=== PATIENT | female | born 1950 | race Caucasian/White ===

== ENCOUNTER → 2018-08-08 | Outpatient (CLI) | payer OTHER | LOC: M.ULTRA 07:21 | DX: R10.11 Right upper quadrant pain (principal) ==

== ENCOUNTER → 2018-08-16 | Outpatient (CLI) | payer OTHER | LOC: M.CT 12:33 | DX: K76.89 Other specified diseases of liver (principal); N83.201 Unspecified ovarian cyst, right side; N83.202 Unspecified ovarian cyst, left side; R10.11 Right upper quadrant pain; Z90.710 Acquired absence of both cervix and uterus ==

== ENCOUNTER → 2018-08-28 | Outpatient (CLI) | payer OTHER | LOC: M.ULTRA 08:41 | DX: N83.202 Unspecified ovarian cyst, left side (principal); Z90.710 Acquired absence of both cervix and uterus; R93.5 Abnormal findings on diagnostic imaging of other abdominal regions, including retroperitoneum; R10.9 Unspecified abdominal pain; R10.2 Pelvic and perineal pain ==